=== PATIENT | female | born 1975 | race African-American/Black ===

== ENCOUNTER 2025-09-26 04:35 | Emergency (ER) | payer BC, MEDICAID ==
[2025-09-26 06:00] VITALS: PULSE 88; RESP 22; O2SAT 97
[2025-09-26] MEDS ORDERED: DEXAMETHASONE 1MG TABLET PO ONE (06:00)
[2025-09-26] MEDS: ALBUTEROL (0.083%) 2.5MG/3ML NEB HHN SCH (06:09)
[2025-09-26] MEDS: IPRATROPIUM BROMIDE (0.02%) 0.5MG/2.5ML NEB HHN SCH (06:09)
[2025-09-26 06:10] VITALS: PULSE 88; RESP 20; O2SAT 98
[2025-09-26] MEDS: DEXAMETHASONE 4MG TABLET PO NR (06:10)
[2025-09-26 06:20] VITALS: PULSE 89; RESP 19; O2SAT 98
[2025-09-26 07:16] VITALS: BP 159/80; TEMP 37
[2025-09-26 08:16] VITALS: PULSE 96; RESP 18; O2SAT 100
== END 2025-09-26 08:39 | disposition home or self-care (01) ==
LOC: ER 04:53
DX: R05.9 Cough, unspecified (principal); J45.909 Unspecified asthma, uncomplicated
CPT/HCPCS: 71045; 94640; 99291; J8540; Z7610 ×2; 94070